=== PATIENT | female | born 1955 | race Caucasian/White ===

== ENCOUNTER 2019-11-13 12:25 | Emergency (ER) | payer MEDICARE, OTHER ==
[2019-11-13 13:25] LABS: BASOPHILS % (AUTO) 0.6 %; EOSINOPHILS # (AUTO) 0.1 10^3/uL (0.0-0.7); EOSINOPHILS % (AUTO) 1.7 %; HGB - HEMOGLOBIN 14.9 g/dL (12.0-16.0); LYMPHOCYTES # (AUTO) 1.7 10^3/uL (1.5-3.5); LYMPHOCYTES % (AUTO) 31.7 %; MEAN CORPUSCULAR HEMOGLOBIN 32.7 pg (27.0-31.0); MEAN CORPUSCULAR HGB CONC 33.7 g/dL (32.0-36.0); MEAN CORPUSCULAR VOLUME 97.1 fL (81.0-99.0); MEAN PLATELET VOLUME 10.2 fL (7.9-10.8); MONOCYTES # (AUTO) 0.4 10^3/uL (0.0-1.0); MONOCYTES % (AUTO) 7.7 %; NEUTROPHILS # (AUTO) 3.2 10^3/uL (1.5-6.6); NEUTROPHILS % (AUTO) 57.9 %; PLT - PLATELET COUNT 123 10^3/uL (130-450); RED BLOOD COUNT 4.55 10^6/uL (4.20-5.40); RED CELL DISTRIBUTION WIDTH 12.6 % (12.0-15.0); WHITE BLOOD COUNT 5.5 x10^3/uL (4.8-10.8)
--- NOTE | 2019-11-13 13:36 | XRAY Report ---
Reason: Chest Pain Procedure Date: 11/13/2019 Accession Number: [id number] / [id number] Procedure: XR - Chest 1 View X-Ray CPT Code: 50045 Final Report FULL RESULT: EXAM: CHEST RADIOGRAPHY EXAM DATE: 11/13/2019 01:16 PM. CLINICAL HISTORY: Chest Pain. COMPARISON: None. TECHNIQUE: 1 view. FINDINGS: Lungs/Pleura: Linear left lung base opacities. No effusions. Mediastinum: Within exam limitations, the cardiomediastinal contour is normal. Other: Right rotator cuff calcific tendinosis. IMPRESSION: Suspect subsegmental atelectasis at the left lung base RAD[facility]
[2019-11-13 13:39] LABS: ALBUMIN 5.3 g/dL (3.2-5.5); ALBUMIN/GLOBULIN RATIO 1.8 (1.0-2.2); BILIRUBIN,TOTAL 1.8 mg/dL (0.2-1.0); CALCIUM 9.7 mg/dL (8.5-10.3); CREATININE 0.7 mg/dL (0.4-1.0); TOTAL PROTEIN 8.2 g/dL (6.7-8.2)
[2019-11-13 15:13] VITALS: BP 189/93
--- NOTE | 2019-11-13 15:13 | ED Physician Documentation ---
History of Present Illness - Stated complaint Stated Complaint: CHEST PX - Chief complaint Chief Complaint: Cardiac - History obtained from History obtained from: Patient, Family - History of Present Illness Timing: Other (1 month ago) Pain level max: 2 Pain level now: 1 - Additonal information Additional information: 64-year-old female presents to the emergency department with left-sided chest pain for the past month. This is been there constantly. Does not radiate. Nothing makes it better or worse. Rates it as a 2 out of 10. It is in the anterior portion of the chest. No history of coronary disease. Does have a history of hyperlipidemia and takes medication for this. Nothing makes it better or worse. No recent travel. No history of blood clots. No pain in the back. Review of Systems Ten Systems: 10 systems reviewed and negative Constitutional: denies: Fever, Chills Nose: denies: Rhinorrhea / runny nose, Congestion Throat: denies: Sore throat Cardiac: denies: Palpitations Respiratory: denies: Cough GI: denies: Vomiting, Diarrhea Skin: denies: Rash Musculoskeletal: denies: Neck pain, Back pain Neurologic: denies: Headache PD PAST MEDICAL HISTORY - Past Medical History Past Medical History: Yes Cardiovascular: High cholesterol - Allergies Allergies/Adverse Reactions: Allergies Allergy/AdvReac Type Severity Reaction Status Date / Time Sulfa (Sulfonamide Allergy Unknown Verified 11/13/19 12:28 Antibiotics) - Living Situation Living Situation: reports: With family Living Arrangement: reports: At home - Social History Does the pt smoke?: No Does the pt drink ETOH?: Yes ETOH Use: Wine Does the pt have substance abuse?: No - Family History Family history: reports: Non contributory PD ED PE NORMAL - Vitals Vital signs reviewed: Yes - General General: Alert and oriented X 3, No acute distress, Well developed/nourished - HEENT HEENT: Moist mucous membranes - Neck Neck: Supple, no meningeal sign, No JVD, No bruit - Cardiac Cardiac: RRR, No murmur, Strong equal pulses, Other (No chest wall tenderness) - Respiratory Respiratory: No respiratory distress, Clear bilaterally - Abdomen Abdomen: Soft, Non tender, Non distended - Derm Derm: Warm and dry - Extremities Extremities: No edema, No calf tenderness / cord - Neuro Neuro: Alert and oriented X 3 - Psych Psych: Normal mood, Normal affect Results - Vitals Vitals: Vital Signs - 24 hr 11/13/19 12:28 Temperature 36.6 C Heart Rate 84 Respiratory 14 Rate Blood Pressure 179/88 H O2 Saturation 99 Oxygen O2 Source Room air - EKG (time done) 1241 Rate: Rate (enter#) (79) Rhythm: NSR [place]: Normal Intervals: Normal [place] QRS: Normal Ischemia: Normal ST segments - Labs Labs: Laboratory Tests 11/13/19 11/13/19 11/13/19 13:05 13:05 13:05 WBC 5.5 RBC 4.55 Hgb 14.9 Hct 44.2 MCV 97.1 MCH 32.7 H MCHC 33.7 RDW 12.6 Plt Count 123 L MPV 10.2 Neut # (Auto) 3.2 Lymph # (Auto) 1.7 Bland # (Auto) 0.4 Eos # (Auto) 0.1 Baso # (Auto) 0.0 Absolute Nucleated RBC 0.00 Nucleated RBC % 0.0 Sodium 139 Potassium 3.9 Chloride 103 Carbon Dioxide 24 Anion Gap 12.0 BUN 13 Creatinine 0.7 Estimated GFR (MDRD) 84 L Glucose 108 H Calcium 9.7 Total Bilirubin 1.8 H AST 80 H ALT 65 H Alkaline Phosphatase 77 Troponin I High Sens 5.4 Total Protein 8.2 Albumin 5.3 Globulin 2.9 Albumin/Globulin Ratio 1.8 Lipase 33 - Rads (name of study) Chest x-ray Radiology: Prelim report reviewed, EMP read contemporaneously, See rad report (Suspect subsegmental atelectasis, left lung base) PD MEDICAL DECISION MAKING - ED course Complexity details: reviewed results, re-evaluated patient, considered differential (No ST elevation CA, no aortic dissection, no PE, no tension pneumothorax, no aortic aneurysm), d/w patient, d/w family ED course: No acute findings on EKG, radiographs or laboratory testing. No evidence of pulmonary embolus. No pleuritic chest pain. No hypoxia. No tachycardia. Unclear etiology of her symptoms. We will have her follow-up closely with her primary care provider to schedule a cardiac stress test. Patient counseled regarding signs and symptoms for which I believe and urgent re-evaluation would be necessary. Patient with good understanding of and agreement to plan and is comfortable going home at this time This document was made in part using voice recognition software. While efforts are made to proofread this document, sound alike and grammatical errors may occur. Departure - Departure Disposition: 01 Home, Self Care Clinical Impression: Chest pain Qualifiers: Chest pain type: unspecified Qualified Code(s): R07.9 - Chest pain, unspecified Condition: Good Instructions: ED Chest Pain Atypical Unkn Cause Follow-Up: Mariana De Leon PA-C [Provider Admit Priv/Credential] - Within 1 week Comments: Follow-up with your doctor for further care including a cardiac stress test. Return if you worsen. This should be done within the next week.
== END 2019-11-13 15:12 | disposition home or self-care (01) ==
LOC: ED 12:25
DX: R07.9 Chest pain, unspecified (principal); E78.5 Hyperlipidemia, unspecified
CPT/HCPCS: 36415; 71045; 80053; 83690; 84484; 85025; 93005; 99284

== ENCOUNTER 2020-01-06 08:00 | Outpatient (CLI) | payer MEDICARE, OTHER ==
[2020-01-06 12:13] LABS: CHOL/HDL RATIO 2.6 (<4.4); CHOLESTEROL 231 mg/dL; HDL CHOLESTEROL 90 mg/dL; LDL CHOLESTEROL,CALCULATED 122 mg/dL; LDL/HDL RATIO 1.4 (<4.4); VLDL CHOLESTEROL 19 mg/dL
== END 2020-01-06 23:59 | disposition home or self-care (01) ==
LOC: LAB.WCP 08:00
PROVIDERS: ATTEND Physician Assistant Medical
DX: R07.81 Pleurodynia (principal); E78.5 Hyperlipidemia, unspecified
CPT/HCPCS: 36415; 80061; 83721

== ENCOUNTER 2020-01-06 10:51 | Outpatient (CLI) | payer MEDICARE, OTHER ==
--- NOTE | 2020-01-06 12:10 | XRAY Report ---
Reason: LEFT RIB PAIN Procedure Date: 01/06/2020 Accession Number: [id number] / [id number] Procedure: WCP - Ribs 2 View LT CPT Code: Final Report FULL RESULT: EXAM: LEFT RIB RADIOGRAPHY EXAM DATE: 01/06/2020 10:51 AM. CLINICAL HISTORY: LEFT RIB PAIN. COMPARISON: CHEST 1 VIEW 11/13/2019 1:15 PM. TECHNIQUE: 2 views. FINDINGS: Bones: No fracture or bone lesion. Lungs: No focal opacities evident. No pneumothorax or pleural effusions. Mediastinum: Incompletely seen. Other: Degenerative change in spine. IMPRESSION: No significant findings 2 view left rib radiography. RADIA
== END 2020-01-06 23:59 | disposition home or self-care (01) ==
LOC: DI.WCP 10:51
PROVIDERS: ATTEND Physician Assistant Medical
DX: R07.81 Pleurodynia (principal)

== ENCOUNTER 2020-11-01 13:03 | Outpatient (CLI) | payer MEDICARE, OTHER ==
[2020-11-01 18:40] LABS: BASOPHILS % (AUTO) 0.5 %; EOSINOPHILS # (AUTO) 0.1 10^3/uL (0.0-0.7); EOSINOPHILS % (AUTO) 1.2 %; HGB - HEMOGLOBIN 14.6 g/dL (12.0-16.0); LYMPHOCYTES # (AUTO) 1.6 10^3/uL (1.5-3.5); LYMPHOCYTES % (AUTO) 27.1 %; MEAN CORPUSCULAR HEMOGLOBIN 32.9 pg (27.0-31.0); MEAN CORPUSCULAR HGB CONC 33.2 g/dL (32.0-36.0); MEAN CORPUSCULAR VOLUME 99.1 fL (81.0-99.0); MONOCYTES # (AUTO) 0.3 10^3/uL (0.0-1.0); MONOCYTES % (AUTO) 5.6 %; NEUTROPHILS # (AUTO) 3.8 10^3/uL (1.5-6.6); NEUTROPHILS % (AUTO) 65.3 %; PLT - PLATELET COUNT 133 10^3/uL (130-450); RED BLOOD COUNT 4.44 10^6/uL (4.20-5.40); RED CELL DISTRIBUTION WIDTH 12.6 % (12.0-15.0); WHITE BLOOD COUNT 5.8 x10^3/uL (4.8-10.8)
[2020-11-01 19:39] LABS: ALBUMIN/GLOBULIN RATIO 1.7 (1.0-2.2); ALKALINE PHOSPHATASE 98 IU/L (42-121); ALT ALANINE AMINOTRANSFERASE 61 IU/L (10-60); AST ASPARTATE AMINOTRANSFERASE 93 IU/L (10-42); BILIRUBIN,TOTAL 1.7 mg/dL (0.2-1.0); BUN - BLOOD UREA NITROGEN 12 mg/dL (6-20); CALCIUM 9.7 mg/dL (8.5-10.3); CARBON DIOXIDE - CO2 24 mmol/L (21-32); CHLORIDE 103 mmol/L (101-111); CHOLESTEROL 268 mg/dL; CREATININE 0.6 mg/dL (0.4-1.0); GLUCOSE 103 mg/dL (70-100); HDL CHOLESTEROL 89 mg/dL; LDL CHOLESTEROL,CALCULATED 153 mg/dL; VLDL CHOLESTEROL 26 mg/dL
[2020-11-01 19:40] LABS: LDL/HDL RATIO 1.7 (<4.4)
[2020-11-01 21:14] LABS: HEMOGLOBIN A1c% 5.4 % (4.27-6.07)
== END 2020-11-01 23:59 | disposition home or self-care (01) ==
LOC: LAB.WCP 13:03
PROVIDERS: ATTEND Physician Assistant Medical
DX: E78.5 Hyperlipidemia, unspecified (principal); I10 Essential (primary) hypertension; R73.9 Hyperglycemia, unspecified
CPT/HCPCS: 36415; 80053; 80061; 83036; 83721; 85025

== ENCOUNTER 2020-11-02 08:00 | Outpatient (CLI) | payer MEDICARE, OTHER ==
[2020-11-02 13:18] LABS: H. PYLORIS ANTIGEN STL NEGATIVE (Negative)
== END 2020-11-02 23:59 | disposition home or self-care (01) ==
LOC: LAB.R 08:00
PROVIDERS: ATTEND Physician Assistant Medical
DX: K52.9 Noninfective gastroenteritis and colitis, unspecified (principal)
CPT/HCPCS: 81599; 87045; 87046; 87177; 87209; 87329; 87338; 87493

== ENCOUNTER 2021-02-23 10:35 | Outpatient (CLI) | payer MEDICARE, OTHER ==
--- NOTE | 2021-02-23 11:58 | Ultrasound Report ---
PROCEDURE: Abdomen Limited INDICATIONS: ELEVATED LIVER ENZYMES TECHNIQUE: Real-time focused scanning was performed of the abdomen, with image documentation. COMPARISON: None. FINDINGS: Increased hepatic parenchymal echogenicity. No focal hepatic mass. No intrahepatic or extr ahepatic biliary ductal dilatation. Normally distended gallbladder without wall thickening, pericolic cystic fluid, sludge, or gallstone. Visualized portions of the pancreas are within normal limits. Th e right kidney is unremarkable. IMPRESSION: Mild to moderate hepatic steatosis. Reviewed by: Juni Franklin MD on 02/23/2021 11:57 AM PDT Approved by: Juni Franklin MD on 02/23/2021 11:57 AM PDT Station ID: [id number]
== END 2021-02-23 10:36 | disposition home or self-care (01) ==
LOC: DI 10:35
PROVIDERS: ATTEND Physician Assistant Medical
DX: R74.8 Abnormal levels of other serum enzymes (principal); K76.0 Fatty (change of) liver, not elsewhere classified

== ENCOUNTER 2022-11-12 09:39 | Outpatient (CLI) | payer MEDICARE, OTHER ==
[2022-11-12] MEDS ORDERED: DIATRIZOATE MEGLU/DIATRIZO SOD 30 ML BOTTLE PO ONE ×2 (09:50→13:58)
[2022-11-12] MEDS ORDERED: iohexoL-300 100 ML VIAL ONE (09:50)
[2022-11-12 10:06] LABS: CREATININE 0.7 mg/dL (0.4-1.0)
--- NOTE | 2022-11-12 13:16 | CT Report ---
PROCEDURE: ABDOMEN/PELVIS W INDICATIONS: ABD PAIN CONTRAST: 100ml Omnipaque 300 TECHNIQUE: After the administration of oral and intravenous contrast, 5 mm thick sections acquired from the diap hragms to the symphysis. 5 mm thick coronal and sagittal reformats were acquired. For radiation dos e reduction, the following was used: automated exposure control, adjustment of mA and/or kV accordin g to patient size. COMPARISON: Abdominal ultrasound 02/23/2021. FINDINGS: Image quality: Excellent. ABDOMEN: Lung bases: Lung bases are clear. Heart size is normal. Solid organs: Liver is prominent in size. No focal lesion. Hepatic steatosis. Gallbladder is unrema rkable. Biliary system is non dilated. Pancreas enhances normally. Spleen is within normal limits. No adrenal nodules. Kidneys demonstrate normal size and enhancement, without hydronephrosis. Peritoneum and bowel: Bowel loops demonstrate normal wall thickness and caliber. Normal appendix. N o free fluid or air. Nodes and vessels: No retroperitoneal or mesenteric adenopathy by size criteria. Aorta and inferior vena cava are normal in size. Small varices near the spleen. Miscellaneous: No ventral hernias. PELVIS: Genitourinary: Bladder wall thickness is normal. Anteverted uterus. Miscellaneous: No inguinal hernias or adenopathy. Bones: No suspicious bony lesions. Small vertebral body osteophytes. No vertebral body compression fractures. IMPRESSION: 1. Source for abdominal pain is not identified. No free fluid. 2. Hepatic steatosis. Reviewed by: Son Archibald MD on 11/12/2022 1:15 PM PST Approved by: Son Archibald MD on 11/12/2022 1:15 PM [facility] Station ID: [id number]
[2022-11-12] MEDS ORDERED: iohexoL-300 100 ML VIAL IVP ONE (13:59)
== END 2022-11-12 09:40 | disposition home or self-care (01) ==
LOC: LAB 09:39
PROVIDERS: ATTEND Nurse Practitioner
DX: R10.9 Unspecified abdominal pain (principal); K76.0 Fatty (change of) liver, not elsewhere classified
CPT/HCPCS: 36415; 74177; 82565; Q9963; Q9967

== ENCOUNTER 2023-10-24 10:46 | Outpatient (CLI) | payer MEDICARE, OTHER ==
[2023-10-24 17:47] LABS: BASOPHILS % (AUTO) 0.9 %; EOSINOPHILS # (AUTO) 0.1 10^3/uL (0.0-0.7); EOSINOPHILS % (AUTO) 3.1 %; HCT - HEMATOCRIT 44.5 % (37.0-47.0); HGB - HEMOGLOBIN 14.5 g/dL (12.0-16.0); LYMPHOCYTES # (AUTO) 1.5 10^3/uL (1.5-3.5); LYMPHOCYTES % (AUTO) 35.1 %; MEAN CORPUSCULAR HEMOGLOBIN 32.2 pg (27.0-31.0); MEAN CORPUSCULAR HGB CONC 32.6 g/dL (32.0-36.0); MEAN CORPUSCULAR VOLUME 98.9 fL (81.0-99.0); MEAN PLATELET VOLUME 10.7 fL (7.9-10.8); MONOCYTES # (AUTO) 0.3 10^3/uL (0.0-1.0); MONOCYTES % (AUTO) 7.1 %; NEUTROPHILS # (AUTO) 2.3 10^3/uL (1.5-6.6); NEUTROPHILS % (AUTO) 53.6 %; PLT - PLATELET COUNT 118 10^3/uL (130-450); RED CELL DISTRIBUTION WIDTH 12.8 % (12.0-15.0); WHITE BLOOD COUNT 4.3 x10^3/uL (4.8-10.8)
[2023-10-24 18:08] LABS: ALBUMIN 4.9 g/dL (3.2-5.5); ALBUMIN/GLOBULIN RATIO 1.9 (1.0-2.2); ALKALINE PHOSPHATASE 143 IU/L (42-121); ALT ALANINE AMINOTRANSFERASE 41 IU/L (10-60); AST ASPARTATE AMINOTRANSFERASE 71 IU/L (10-42); BILIRUBIN,TOTAL 1.8 mg/dL (0.2-1.0); BUN - BLOOD UREA NITROGEN 9 mg/dL (6-20); CALCIUM 9.9 mg/dL (8.5-10.3); CARBON DIOXIDE - CO2 26 mmol/L (21-32); CHLORIDE 101 mmol/L (101-111); CHOL/HDL RATIO 3.3 (<4.4); CHOLESTEROL 227 mg/dL; CREATININE 0.7 mg/dL (0.6-1.3); GFR - MDRD 83 (>89); GLUCOSE 132 mg/dL (74-104); HDL CHOLESTEROL 69 mg/dL; LDL CHOLESTEROL,CALCULATED 124 mg/dL; LDL/HDL RATIO 1.8 (<4.4); POTASSIUM 4.6 mmol/L (3.5-4.5); SODIUM 139 mmol/L (135-145); TOTAL PROTEIN 7.5 g/dL (6.4-8.9); TRIGLYCERIDES 171 mg/dL (48-352); VLDL CHOLESTEROL 34 mg/dL
== END 2023-10-24 10:47 | disposition home or self-care (01) ==
LOC: LAB.N 10:46
PROVIDERS: ATTEND Physician Assistant Medical
DX: E78.5 Hyperlipidemia, unspecified (principal); I10 Essential (primary) hypertension
CPT/HCPCS: 36415; 80053; 80061; 83721; 85025

== ENCOUNTER 2023-11-17 13:25 | Outpatient (CLI) | payer MEDICARE, OTHER ==
--- NOTE | 2023-11-17 15:31 | Ultrasound Report ---
PROCEDURE: Pelvic w/Transvaginal INDICATIONS: PELVIC PAIN TECHNIQUE: Real-time scanning was performed of the pelvic organs, with image documentation. Additional endovagi nal scanning was necessary due to incomplete visualization of the adnexal and endometrial structures by transabdominal scanning. COMPARISON: CT abdomen pelvis 11/12/2022. FINDINGS: Uterus: Uterus is anteverted and normal in size at 6.4 x 3.6 x 4.5 cm. The myometrium is heterogene ous. The endometrium measures 5 mm in combined thickness. Trace fluid within the endometrium. Echog enic focus within the endometrium measuring 1.8 x 0.8 x 1.5 cm, possible polyp. Right anterior intram ural fibroid measuring 1.2 cm. Prominent uterine vasculature. Ovaries: The ovaries are not seen Other: No pathologic free abdominal or pelvic fluid. IMPRESSION: 1.Trace fluid within the endometrium with a focal lesion measuring 1.8 cm, possibly a polyp. Recommen d endometrial sampling or follow-up imaging. 2.Intramural fibroid measuring 1.2 cm. 3.Prominent uterine vasculature, a nonspecific finding which can be seen with pelvic congestion syndr ome. Recommend clinical correlation. 4.The ovaries are not seen. Reviewed by: Narinder Brown MD on 11/17/2023 3:29 PM PST Approved by: Narinder Brown MD on 11/17/2023 3:29 PM PST Station ID: [id number]
== END 2023-11-17 13:26 | disposition home or self-care (01) ==
LOC: DI 13:25
PROVIDERS: ATTEND Physician Assistant Medical
DX: R10.2 Pelvic and perineal pain (principal); D25.1 Intramural leiomyoma of uterus; R93.89 Abnormal findings on diagnostic imaging of other specified body structures

== ENCOUNTER 2023-11-18 09:17 | Outpatient (CLI) | payer MEDICARE, OTHER ==
--- NOTE | 2023-11-19 11:33 | Mammography Report ---
BILATERAL DIGITAL SCREENING MAMMOGRAM 3D/2D: 11/18/2023 CLINICAL: Routine screening. Family history of breast cancer. Comparison is made to exams dated: 10/25/2013 mammogram and 06/10/2011 mammogram - [facility]. Both breasts are heterogeneously dense, which may obscure small masses (category c / 51-75% glandular tissue). No significant masses, calcifications, or other findings are seen in either breast. There has been no significant interval change. IMPRESSION: NEGATIVE There is no mammographic evidence of malignancy. A 1 year screening mammogram is recommended. Based on the Tyrer Cuzick model (a risk assessment model) the patient's lifetime risk is 11.4% and he r 10 year risk is 7.3%. According to the ACR, ACS, and NCCN guidelines, an annual breast MRI exam susan ng with mammogram is recommended if the patient's lifetime risk is 20% or greater. This exam was interpreted at Station ID: [id number]. NOTE: For mammograms, a report in lay terms will be sent to the patient. Approximately 15% of breast malignancies will not be visualized mammographically. In the management of a palpable breast mass, a negative mammogram must not discourage biopsy of a clinically suspicious lesion. Electronically Signed By: Sekou larson/juli:11/18/2023 11:00:26 letter sent: No_Letter ACR BI-RADS Category 1: Negative 3341F PARENCHYMAL PATTERN: (D) - The breast(s) demonstrate(s) heterogeneously dense fibroglandular vipin nelson. BI-RADS CATEGORY: (1) - 1 Mammogram [id number] 1 year screening LATERALITY: (B)
== END 2023-11-18 09:18 | disposition home or self-care (01) ==
LOC: DI.N 09:17
DX: Z12.31 Encounter for screening mammogram for malignant neoplasm of breast (principal); R92.333 Mammographic heterogeneous density, bilateral breasts; Z80.3 Family history of malignant neoplasm of breast

== ENCOUNTER 2024-02-05 10:37 | Outpatient (CLI) | payer MEDICARE, OTHER ==
[2024-02-05 12:20] LABS: ESTIMATED AVERAGE GLUCOSE 114 mg/dL (70-100); HEMOGLOBIN A1c% 5.6 % (4.27-6.07)
[2024-02-05 12:23] LABS: CALCIUM 10.4 mg/dL (8.5-10.3); CREATININE 0.8 mg/dL (0.6-1.3); POTASSIUM 4.4 mmol/L (3.5-4.5)
== END 2024-02-05 10:38 | disposition home or self-care (01) ==
LOC: LAB.N 10:37
PROVIDERS: ATTEND Physician Assistant Medical
DX: R73.9 Hyperglycemia, unspecified (principal)
CPT/HCPCS: 36415; 80048; 83036

== ENCOUNTER 2024-02-24 08:34 | Day surgery (SDC) | payer MEDICARE, OTHER ==
[2024-02-24] MEDS: LACTATED RINGERS 1,000 ML IV ONE ×2 (08:39→11:05)
--- NOTE | 2024-02-24 09:23 | ANESTHESIA ---
Pre-Anesthesia VS, & Labs - Diagnosis Thickened endometrium and uterine polyp - Procedure hysterscopy, d&C, myosure Vital Signs: Temp Pulse Resp BP Pulse Ox O2 Flow Rate 36.0 C L 56 L 18 157/80 H 97 02/24/24 08:50 02/24/24 08:50 02/24/24 08:50 02/24/24 08:50 02/24/24 08:50 Height: 5 ft Weight (kg): 53.7 kg Body Mass Index: 23.1 BMI Classification: Normal - NPO >8 hours - Is Patient ?: No Home Medications and Allergies Home Medications: Ambulatory Orders Metoprolol Succinate 100 mg PO DAILY 02/16/24 Rosuvastatin Calcium 20 mg PO DAILY 02/16/24 Metoprolol Succinate 100 mg PO DAILY 02/16/24 Rosuvastatin Calcium 20 mg PO DAILY 02/16/24 Allergies/Adverse Reactions: Allergies Allergy/AdvReac Type Severity Reaction Status Date / Time Sulfa (Sulfonamide Allergy Unknown Verified 11/13/19 12:28 Antibiotics) Anes History & Medical History - Anesthetic History Anesthesia Complications: reports: No previous complications - Medical History Cardiovascular: reports: Hypertension, High cholesterol Pulmonary: reports: None Gastrointestinal: reports: None Urinary: reports: None Neuro: reports: None Musculoskeletal: reports: Other Endocrine/Autoimmune: reports: Other (polymyalgia rheumatica) Skin: reports: Psoriasis Smoking Status: Never smoker Psychosocial: reports: Alcohol (2-3 glasses of wine per day) History of Cancer?: No - Surgical History Eyes Ears Nose Throat (EENT): reports: Tonsil/Adenoidectomy Exam General: Alert, Oriented x3, Cooperative, No acute distress Dental: WNL Mouth Openin Fingerbreadth Neck Mobility: Normal Mallampati classification: II Thyromental Distance: 4-6 cm Mental/Cognitive Status: Alert/Oriented X3, Normal for patient Plan Anesthesia Type: General Consent for Procedure(s) Verified and Reviewed: Yes Code Status: Attempt Resuscitation ASA classification: 2-Mild systemic disease Is this case an emergency?: No
[2024-02-24] MEDS ORDERED: NALOXONE 0.4 MG/ML VIAL IVP PRN (09:25)
[2024-02-24] MEDS ORDERED: ATROPINE ABBOJECT 1 MG/10 ML SYRINGE IVP PRN (09:25)
[2024-02-24] MEDS ORDERED: HYDROmorphone 0.5 MG/0.5 ML SYRINGE IVP PRN (09:25)
[2024-02-24] MEDS ORDERED: MORPHINE 2 MG/ML CARPUJECT IVP PRN (09:25)
[2024-02-24] MEDS ORDERED: ONDANSETRON 4 MG/2 ML VIAL IVP PRN ×2 (09:25→11:06)
[2024-02-24] MEDS ORDERED: fentaNYL 100 MCG/2 ML VIAL IVP PRN (09:25)
[2024-02-24] MEDS ORDERED: fentaNYL 100 MCG/2 ML VIAL ONE (09:46)
[2024-02-24] MEDS ORDERED: MIDAZOLAM 2 MG/2 ML VIAL ONE (09:46)
[2024-02-24] MEDS ORDERED: LIDOCAINE-PF 2% 10 ML AMP SUBQ ONE (09:46)
[2024-02-24] MEDS ORDERED: PROPOFOL 200 MG/20 ML VIAL IVP ONE ×2 (09:47→10:42)
[2024-02-24] MEDS ORDERED: LACTATED RINGERS 1,000 ML IV SCH (10:00)
[2024-02-24] MEDS ORDERED: DEXAMETHASONE 4 MG/ML VIAL ONE (10:38)
[2024-02-24] MEDS ORDERED: ONDANSETRON 4 MG/2 ML VIAL ONE (10:38)
[2024-02-24] MEDS ORDERED: KETOROLAC 30 MG/ML VIAL ONE (10:58)
[2024-02-24] MEDS ORDERED: oxyCODONE 5 MG TABLET PO PRN (11:06)
--- NOTE | 2024-02-24 11:42 | OPERATIVE REPORT ---
Operative Report - General Planned Procedure: hysteroscopy D&C, remove polyp Pre-Op Diagnosis: endometrial polyp, thick endometrial stripe Procedure Performed: hysteroscopy D&C, remove polyp Post Op Diagnosis: endometrial polyp - Procedure Note Primary Surgeon: Sheila Mckeon MD Anesthesia Provider: Sourav Coates CRNA Anesthesia Technique: General LMA Pathology: endocervical curettings, endometrial curettings with polyp IV Fluids (mL): 500 Estimated Blood Loss (mL): 5 Indications: thickened endometrial lining Findings: large polyp in endometrial cavity - Other Other Information/Narrative: INDICATION FOR PROCEDURE: Patient is a 68 yo with uterine cramping. She had an ultrasound that showed a 10 mm stripe, but also a polyp in the endometrial cavity about 1.8 by 1 cm. Office biopsy was done and was benign. She is here today to remove the polyp and evaluate further. DESCRIPTION OF PROCEDURE: The patient was brought to the operating room where general LMA anesthesia was administered. She was prepped and draped in normal sterile fashion with her legs in Ori stirrups. She had sequential compression devices on her lower extremities. She received no pre-operative antibiotics. Exam under anesthesia was done. Speculum was placed. Cervix was grasped with a tenaculum. Endocervical curettage was done.The cervix was dilated to allow passage of a 6 mm hysteroscope. This was placed and saline was used as a distending medium, and the cavity was examined with the above findings. Both tubal ostia were visualized. The polyp was visualized arising from the poste rior of the uterus just above the lower uterine segment left of center. This was removed with the Myosure Reach. Further sampling of the cavity was done with Myosure and then with sharp curettage. FLUID DEFICIT: 250 mL. URINE OUTPUT: None The patient had anesthesia reversed, LMA removed and she was brought to the recovery room in stable condition. She will be discharged home when awake and stable. Complications: None Counts were correct.
[2024-02-24 11:51] VITALS: O2SAT 98
[2024-02-24 12:10] VITALS: BP 159/65
--- NOTE | 2024-02-24 12:47 | ANESTHESIA POST OP EVALUATION ---
Anesthesia Post Eval - Post Anesthesia Eval Vitals: Last Vital Signs Temp 36.2 C L 02/24/24 11:50 Pulse 56 L 02/24/24 11:50 Resp 14 02/24/24 11:50 BP 159/65 H 02/24/24 11:50 Pulse Ox 98 02/24/24 11:50 O2 Flow Rate CV Function Including HR & BP: Stable Pain Control: Satisfactory Nausea & Vomiting: Negative Mental Status: Baseline Respiratory Status: Airway Patent Hydration Status: Satisfactory Anesthesia Complications: None
== END 2024-02-24 08:35 | disposition home or self-care (01) ==
LOC: SDS 08:34
PROVIDERS: ATTEND Obstetrics & Gynecology
PROC: 0UB98ZZ Excision of Uterus, Via Natural or Artificial Opening Endoscopic (ICD-10-PCS; principal; 2024-02-24 10:00)
DX: N84.0 Polyp of corpus uteri (principal); I10 Essential (primary) hypertension
CPT/HCPCS: 58558; J7120

== ENCOUNTER 2024-05-27 13:52 | Outpatient (CLI) | payer MEDICARE, OTHER ==
--- NOTE | 2024-05-30 21:52 | DEXA Report ---
PROCEDURE: Dexa Spine and/or Hip INDICATIONS: POST MENOPAUSAL TECHNIQUE: Dual energy x-ray absorptiometry (DXA) was performed on a [employer] System. Regions measur ed are the AP Spine, femoral neck, and if needed forearm. COMPARISON: None FINDINGS: Lumbar Spine: Bone Mineral Density: 1.175 g/cm/cm,T score: 0.0. Left Femoral Neck: Bone Mineral Density: 0.899 g/cm/cm, T score: -1.0. Left Hip: Bone Mineral Density: 1.003 g/cm/cm,T score: 0.0. FRAX risk factors: 10 year risk of major osteoporotic fracture: 8.4% major osteoporotic fracture = hip, clinical vertebral, proximal humerus, distal forearm 10 year risk of hip fracture: 0.9% (T score greater or equal to -1.0: NORMAL) (T score from -1.1 to -2.4: OSTEOPENIA) (T score less than or equal to -2.5 to: OSTEOPOROSIS) Impression: By WHO criteria, this patient has normal bone density. Patients with diagnosis of osteoporosis or osteopenia should have regular bone mineral density assess ment. For those eligible for Medicare, routine testing is allowed once every 2 years. Testing frequ ency can be increased for patients who have rapidly progressing disease or for those who are receivin g medical therapy to restore bone mass. Reviewed by: Narinder Brown MD on 05/30/2024 9:51 PM PDT Approved by: Narinder Brown MD on 05/30/2024 9:51 PM PDT Station ID: [id number]
== END 2024-05-27 13:53 | disposition home or self-care (01) ==
LOC: DI 13:52
PROVIDERS: ATTEND Physician Assistant Medical
DX: Z78.0 Asymptomatic menopausal state (principal)